=== PATIENT | male | born 1960 | race Caucasian/White ===

== ENCOUNTER 2017-12-10 13:42 | Emergency (ER) | payer MEDICAID ==
[~2017-12-10] VITALS: Ht 172.7 cm; Wt 77.0 kg
[2017-12-10] MEDS ORDERED: METF500T4 PO (13:52)
[2017-12-10] MEDS ORDERED: SODIUM CHLORIDE 0.9% 1,000 ML IV ONE ×2 (14:25→16:57)
[2017-12-10 14:43] LABS: BASOPHILS % 2.1 % (0.0-2.0); HEMATOCRIT. 40.8 % (42.0-52.0); HEMOGLOBIN. 13.7 g/dL (14.0-18.0); LYMPHOCYTES % 21.8 % (20.0-50.0); MEAN CORPUSCULAR HEMOGLOBIN 30.9 pg (28.0-32.0); MEAN CORPUSCULAR VOLUME 91.9 fL (80.0-94.0); MEAN PLATELET VOLUME 8.2 fl (7.4-10.4); MONOCYTES % 6.8 % (2.0-8.0); NEUTROPHILS % 63.3 % (40.0-76.0); PLATELET 269 x1000/uL (130-400); RED BLOOD CELL COUNT 4.44 mill/uL (4.7-6.1); RED CELL DISTRIBUTION WIDTH 13.9 % (11.6-14.6)
[2017-12-10 14:55] LABS: CLARITY URINE CLEAR (CLEAR); COLOR URINE YELLOW (YELLOW); KETONES URINE NEGATIVE (NEGATIVE); LEUKOCYTE ESTERASE URINE NEGATIVE (NEGATIVE); NITRITE URINE NEGATIVE (NEGATIVE); OCCULT BLOOD URINE NEGATIVE (NEGATIVE); PROTEIN URINE NEGATIVE (NEGATIVE); SPECIFIC GRAVITY URINE 1.038 (1.005-1.030); UROBILINOGEN URINE 0.2 E.U./dL (0.2-1.0)
[2017-12-10 14:56] LABS: BETA HYDROXYBUTYRATE 0.1 mMol/L (0.0-0.3); CHLORIDE 94 mEq/L (98-107)
[2017-12-10] MEDS ORDERED: INSULIN REGULAR (HUMULIN R) 300UNITS/3ML SUBCUT ONE (15:15)
[2017-12-10 17:12] VITALS: BP 128/76
== END 2017-12-10 18:22 | disposition home or self-care (01) ==
LOC: ER 15:13
DX: E11.65 Type 2 diabetes mellitus with hyperglycemia (principal); E78.00 Pure hypercholesterolemia, unspecified; F10.20 Alcohol dependence, uncomplicated
CPT/HCPCS: 36415; 80053; 81003; 82010; 82962; 85025; 96360; 96361; 96372; 99284; J1815; J7030; Z7610

== ENCOUNTER 2018-06-06 12:53 | Emergency (ER) | payer MEDICAID ==
[~2018-06-06] VITALS: Ht 170.2 cm; Wt 75.0 kg
[~2018-06-06 12:53] MED LIST: METF500T6 PO
[2018-06-06] MEDS ORDERED: IBUPROFEN 600MG TABLET PO ONE (16:00)
[2018-06-06 16:21] VITALS: BP 178/100
== END 2018-06-06 17:43 | disposition home or self-care (01) ==
LOC: ER 12:53
DX: S82.65XA Nondisplaced fracture of lateral malleolus of left fibula, initial encounter for closed fracture (principal); E11.9 Type 2 diabetes mellitus without complications; V17.0XXA Pedal cycle driver injured in collision with fixed or stationary object in nontraffic accident, initial encounter; Y93.89 Activity, other specified; Y92.89 Other specified places as the place of occurrence of the external cause
CPT/HCPCS: 29505; 73590; 73610; 73630; 99284

== ENCOUNTER 2019-05-25 12:02 | Emergency (ER) | payer MEDICAID, OTHER ==
[~2019-05-25] VITALS: Ht 172.7 cm; Wt 68.0 kg
[~2019-05-25 12:02] MED LIST changes: +METF-414 PO; -METF500T6 PO
[2019-05-25 14:29] LABS: BASOPHILS % 0.6 % (0.0-2.0); EOSINOPHILS % 1.5 % (0.0-5.0); HEMATOCRIT. 40.3 % (42.0-52.0); LYMPHOCYTES % 16.8 % (20.0-50.0); MEAN CORPUSCULAR HEMOGLOBIN 31.9 pg (28.0-32.0); MEAN CORPUSCULAR VOLUME 91.8 fL (80.0-94.0); MEAN PLATELET VOLUME 7.5 fl (7.4-10.4); MONOCYTES % 8.5 % (2.0-8.0); NEUTROPHILS % 72.6 % (40.0-76.0); PLATELET 310 x1000/uL (130-400); RED BLOOD CELL COUNT 4.39 mill/uL (4.7-6.1); RED CELL DISTRIBUTION WIDTH 12.7 % (11.6-14.6)
[2019-05-25 14:34] LABS: CHLORIDE 92 mEq/L (98-107)
[2019-05-25] MEDS ORDERED: INSULIN REGULAR (HUMULIN R) 300UNITS/3ML SUBCUT ONE (15:00)
[2019-05-25] MEDS ORDERED: SODIUM CHLORIDE 0.9% 1,000 ML IV ONE (15:15)
[2019-05-25 18:23] VITALS: BP 121/73
== END 2019-05-25 18:28 | disposition home or self-care (01) ==
LOC: ER 12:02
DX: R21 Rash and other nonspecific skin eruption (principal); E11.65 Type 2 diabetes mellitus with hyperglycemia; R03.0 Elevated blood-pressure reading, without diagnosis of hypertension; Z79.4 Long term (current) use of insulin
CPT/HCPCS: 36415; 80053; 82962; 85025; 96372; 99283; J1815; J7030

== ENCOUNTER 2021-02-23 12:45 | Inpatient (IN) | payer OTHER ==
[~2021-02-23] VITALS: Ht 167.6 cm; Wt 61.2 kg
[2021-02-23] MEDS: LACTATED RINGERS 1,000 ML IV SCH ×2 (14:05→16:20)
[2021-02-23 14:24] LABS: BASOPHILS % 1.2 % (0.0-2.0); EOSINOPHILS % 2.4 % (0.0-5.0); HEMATOCRIT. 41.4 % (42.0-52.0); HEMOGLOBIN. 13.8 g/dL (14.0-18.0); LYMPHOCYTES % 20.3 % (20.0-50.0); MEAN CORPUSCULAR VOLUME 92.7 fL (80.0-94.0); MEAN PLATELET VOLUME 7.5 fl (7.4-10.4); MONOCYTES % 7.6 % (2.0-8.0); NEUTROPHILS % 68.5 % (40.0-76.0); PLATELET 331 x1000/uL (130-400); RED BLOOD CELL COUNT 4.46 mill/uL (4.7-6.1); RED CELL DISTRIBUTION WIDTH 13.1 % (11.6-14.6)
[2021-02-23 14:31] LABS: CHLORIDE 93 mEq/L (98-107)
[2021-02-23 14:35] LABS: INR 1.1; PROTHROMBIN TIME 11.6 sec (9.6-11.0)
[2021-02-23] MEDS ORDERED: LACTATED RINGERS 1,000 ML IV SCH (15:15)
[2021-02-23] MEDS ORDERED: KCL 20MEQ/100ML PREMIX 100 ML IV NR (15:15)
[2021-02-23] MEDS ORDERED: IOHEXOL-300 100 ML BOTTLE ONE (19:33)
[2021-02-24] MEDS ORDERED: LACTULOSE 20G/30ML UDC PO SCH (08:30)
[2021-02-24] MEDS ORDERED: DEXTROSE 50% WATER 50ML SYRINGE IV PRN (08:30)
[2021-02-24] MEDS ORDERED: BISACODYL 10MG SUPP PR PRN (08:30)
[2021-02-24] MEDS: BLOOD SUGAR DIAGNOSTIC STRIP TEST SCH ×3 (09:00→21:41)
[2021-02-24] MEDS ORDERED: INSULIN GLARGINE UD 100 UNITS/ML SYR SUBCUT SCH (10:00)
[2021-02-24 12:57] LABS: HEPATITIS B SURFACE ANTIGEN NEGATIVE
[2021-02-24] MEDS ORDERED: INSULIN LISPRO 100 UNITS/ML SUBCUT SCH (13:20)
[2021-02-24 13:27] LABS: HEPATITIS A AB IGM NEGATIVE (NEGATIVE)
[2021-02-24] MEDS: METOCLOPRAMIDE HCL 10MG/2ML VIAL IV SCH ×2 (14:32→18:03)
[2021-02-24] MEDS: INSULIN LISPRO 100 UNITS/ML SUBCUT SCH ×3 (14:33→22:11)
[2021-02-24] MEDS: TAMSULOSIN HCL 0.4MG SR CAPSULE PO SCH (14:43)
[2021-02-24 16:55] VITALS: BP 137/90
[2021-02-24] MEDS ORDERED: POTASSIUM CHLORIDE 20MEQ TABLET SR PO NR (17:15)
[2021-02-24] MEDS ORDERED: IMOD MT (17:44)
[2021-02-24] MEDS ORDERED: LISI20TA31 MT (17:44)
[2021-02-24] MEDS ORDERED: FOLI-43 MT (17:44)
[2021-02-24] MEDS ORDERED: METF-416 MT (17:44)
[2021-02-24] MEDS ORDERED: LIP40 MT (17:44)
[2021-02-24] MEDS: AMLODIPINE 10MG TABLET PO SCH (18:03)
[2021-02-24 18:58] VITALS: BP 137/90
[2021-02-24] MEDS ORDERED: PNEUMOCOCCAL 23-VAL P-SAC VAC 0.5 ML IM ONE (19:15)
[2021-02-24 20:00] VITALS: BP 98/61
[2021-02-24] MEDS: INSULIN GLARGINE UD 100 UNITS/ML SYR SUBCUT SCH (22:11)
[2021-02-25] VITALS: BP_SYST 146; BP_SYST 95; BP_DIAS 51; BP_DIAS 82
[2021-02-25] MEDS: METOCLOPRAMIDE HCL 10MG/2ML VIAL IV SCH ×3 (00:50→12:00)
[2021-02-25 04:00] VITALS: BP 146/82
[2021-02-25] MEDS: BLOOD SUGAR DIAGNOSTIC STRIP TEST SCH ×3 (06:09→16:20)
[2021-02-25] MEDS: INSULIN LISPRO 100 UNITS/ML SUBCUT SCH ×3 (06:20→16:20)
[2021-02-25 06:46] LABS: BASOPHILS % 0.7 % (0.0-2.0); EOSINOPHILS % 0.8 % (0.0-5.0); HEMATOCRIT. 37.4 % (42.0-52.0); HEMOGLOBIN. 12.9 g/dL (14.0-18.0); LYMPHOCYTES % 17.3 % (20.0-50.0); MEAN CORPUSCULAR HEMOGLOBIN 31.6 pg (28.0-32.0); MEAN CORPUSCULAR VOLUME 91.7 fL (80.0-94.0); MEAN PLATELET VOLUME 7.4 fl (7.4-10.4); MONOCYTES % 6.8 % (2.0-8.0); NEUTROPHILS % 74.4 % (40.0-76.0); PLATELET 323 x1000/uL (130-400); RED BLOOD CELL COUNT 4.08 mill/uL (4.7-6.1); RED CELL DISTRIBUTION WIDTH 13.2 % (11.6-14.6)
[2021-02-25 06:57] LABS: CHLORIDE 98 mEq/L (98-107)
[2021-02-25 08:00] VITALS: BP 114/73
[2021-02-25] MEDS ORDERED: THIAMINE HCL 100MG TABLET PO SCH (09:00)
[2021-02-25] MEDS ORDERED: MULTIVITAMINS,THER W-MINERALS TABLET PO SCH (09:00)
[2021-02-25] MEDS ORDERED: FOLIC ACID 1MG TABLET PO SCH (09:00)
[2021-02-25] MEDS ORDERED: POTASSIUM CHLORIDE INJ 40 MEQ in DEXT 5% WATER 250 ML IV NR (09:30)
[2021-02-25] MEDS: TAMSULOSIN HCL 0.4MG SR CAPSULE PO SCH (09:50)
[2021-02-25] MEDS: AMLODIPINE 10MG TABLET PO SCH (09:50)
[2021-02-25] MEDS: INSULIN GLARGINE UD 100 UNITS/ML SYR SUBCUT SCH (09:55)
[2021-02-25 12:00] VITALS: BP 149/87
[2021-02-25] MEDS ORDERED: POTASSIUM CHLORIDE 20MEQ TABLET SR PO SCH (12:00)
[2021-02-25] MEDS ORDERED: LANTUSUD SUBCUT (12:44)
[2021-02-25] MEDS ORDERED: THIA100T72 PO (12:44)
[2021-02-25] MEDS ORDERED: TAMS-11 PO (12:44)
[2021-02-25] MEDS ORDERED: AMLO10TA80 PO (12:44)
[2021-02-25] MEDS ORDERED: DOCU-138 MT (12:45)
[2021-02-25 14:53] VITALS: BP 149/87
[2021-02-25 16:00] VITALS: BP 124/75
== END 2021-02-25 18:15 | disposition home or self-care (01) | DRG 48 ==
LOC: ER 12:45 → CANBEDREQ 02-24 01:18 → 5WST 02-24 06:11 → ENRESERV 02-24 15:33 → CANBEDREQ 02-24 18:33
PROVIDERS: ADMIT Internal Medicine; ATTEND Internal Medicine
DX: E11.43 Type 2 diabetes mellitus with diabetic autonomic (poly)neuropathy (principal); E87.8 Other disorders of electrolyte and fluid balance, not elsewhere classified; E11.65 Type 2 diabetes mellitus with hyperglycemia; E87.1 Hypo-osmolality and hyponatremia; N40.0 Benign prostatic hyperplasia without lower urinary tract symptoms; K56.41 Fecal impaction; I10 Essential (primary) hypertension; E78.00 Pure hypercholesterolemia, unspecified; Z20.822 Contact with and (suspected) exposure to COVID-19; K31.84 Gastroparesis; E78.5 Hyperlipidemia, unspecified; N32.89 Other specified disorders of bladder; D72.819 Decreased white blood cell count, unspecified; E87.6 Hypokalemia; F10.10 Alcohol abuse, uncomplicated; Y90.9 Presence of alcohol in blood, level not specified
CPT/HCPCS: 36415; 74177; 76705; 80048; 80053; 82962; 83036; 84132; 84484; 85025; 86705; 86709; 86803; 87340; 87426; 90732; 93005; 99285; J1815; J2765; J3480; J7040; J7060; Q9967

== ENCOUNTER 2021-05-29 15:04 | Inpatient (IN) | payer OTHER ==
[~2021-05-29] VITALS: Ht 165.1 cm; Wt 70.8 kg
[~2021-05-29 15:04] MED LIST changes: +AMLO10TA80 PO; +DOCU-138 MT; +FOLI-43 MT; +IMOD MT; +LANTUSUD SUBCUT; +LIP40 MT; -METF-414 PO; +METF-416 MT; +TAMS-11 PO; +THIA100T72 PO
[2021-05-29 16:58] LABS: BASOPHILS % 0.8 % (0.0-2.0); EOSINOPHILS % 1.3 % (0.0-5.0); HEMATOCRIT. 35.2 % (42.0-52.0); HEMOGLOBIN. 12.1 g/dL (14.0-18.0); MEAN CORPUSCULAR HEMOGLOBIN 30.6 pg (28.0-32.0); MEAN CORPUSCULAR VOLUME 89.1 fL (80.0-94.0); MONOCYTES % 5.5 % (2.0-8.0); NEUTROPHILS % 72.4 % (40.0-76.0); PLATELET 349 x1000/uL (130-400); RED BLOOD CELL COUNT 3.96 mill/uL (4.7-6.1); RED CELL DISTRIBUTION WIDTH 12.9 % (11.6-14.6)
[2021-05-29 17:00] LABS: CHLORIDE 95 mEq/L (98-107)
[2021-05-29 17:26] LABS: CLARITY URINE CLEAR (CLEAR); COLOR URINE YELLOW (YELLOW); KETONES URINE NEGATIVE (NEGATIVE); LEUKOCYTE ESTERASE URINE NEGATIVE (NEGATIVE); NITRITE URINE NEGATIVE (NEGATIVE); OCCULT BLOOD URINE NEGATIVE (NEGATIVE); PH URINE 5.5 (4.5-8.0); PROTEIN URINE NEGATIVE (NEGATIVE); SPECIFIC GRAVITY URINE 1.042 (1.005-1.030); UROBILINOGEN URINE 0.2 E.U./dL (0.2-1.0)
[2021-05-29] MEDS ORDERED: POTASSIUM CHLORIDE 20MEQ TABLET SR PO NR (18:00)
[2021-05-29] MEDS ORDERED: SODIUM CHLORIDE 0.9% 1,000 ML IV ONE ×2 (18:00)
[2021-05-29] MEDS ORDERED: KCL 20MEQ/100ML PREMIX 100 ML IV NR (18:00)
[2021-05-29] MEDS ORDERED: TETANUS, DIPHTHERIA, PERTUSSIS VAC/PF 0.5ML (>7YR OLD) IM ONE (19:30)
[2021-05-29 23:05] VITALS: BP 149/82
[2021-05-30] VITALS (12 sets, daily range): BP systolic 100–157; BP diastolic 65–96
[2021-05-30] MEDS ORDERED: DEXTROSE 50% WATER 50ML SYRINGE IV PRN (00:15)
[2021-05-30] MEDS: BLOOD SUGAR DIAGNOSTIC STRIP TEST SCH ×4 (06:24→21:17)
[2021-05-30 07:43] LABS: CHLORIDE 101 mEq/L (98-107)
[2021-05-30 07:44] LABS: BASOPHILS % 0.9 % (0.0-2.0); EOSINOPHILS % 1.5 % (0.0-5.0); HEMATOCRIT. 37.5 % (42.0-52.0); HEMOGLOBIN. 12.7 g/dL (14.0-18.0); LYMPHOCYTES % 22.1 % (20.0-50.0); MEAN CORPUSCULAR VOLUME 88.8 fL (80.0-94.0); MEAN PLATELET VOLUME 7.9 fl (7.4-10.4); MONOCYTES % 7.4 % (2.0-8.0); NEUTROPHILS % 68.1 % (40.0-76.0); PLATELET 369 x1000/uL (130-400); RED BLOOD CELL COUNT 4.22 mill/uL (4.7-6.1); RED CELL DISTRIBUTION WIDTH 13.4 % (11.6-14.6)
[2021-05-30] MEDS: AMLODIPINE 10MG TABLET PO SCH (08:21)
[2021-05-30] MEDS: INSULIN LISPRO 100 UNITS/ML SUBCUT SCH ×6 (08:22→21:00)
[2021-05-30] MEDS: ENOXAPARIN 40MG/0.4ML SYR SUBCUT SCH (08:22)
[2021-05-30] MEDS ORDERED: POTASSIUM CHLORIDE 20MEQ TABLET SR PO NR (08:30)
[2021-05-30] MEDS ORDERED: INSULIN GLARGINE UD 100 UNITS/ML SYR SUBCUT SCH (10:00)
[2021-05-30] MEDS: INSULIN GLARGINE UD 100 UNITS/ML SYR SUBCUT SCH ×2 (11:39→22:47)
[2021-05-31] VITALS (12 sets, daily range): BP systolic 100–157; BP diastolic 54–99
[2021-05-31] MEDS: BLOOD SUGAR DIAGNOSTIC STRIP TEST SCH ×4 (06:19→21:00)
[2021-05-31] MEDS: INSULIN LISPRO 100 UNITS/ML SUBCUT SCH ×5 (06:20→21:00)
[2021-05-31 06:21] LABS: CHLORIDE 101 mEq/L (98-107)
[2021-05-31 06:41] LABS: BASOPHILS % 0.8 % (0.0-2.0); EOSINOPHILS % 0.5 % (0.0-5.0); LYMPHOCYTES % 18.4 % (20.0-50.0); MEAN CORPUSCULAR HEMOGLOBIN 30.2 pg (28.0-32.0); MEAN PLATELET VOLUME 7.9 fl (7.4-10.4); MONOCYTES % 7.8 % (2.0-8.0); NEUTROPHILS % 72.5 % (40.0-76.0); PLATELET 388 x1000/uL (130-400); RED BLOOD CELL COUNT 4.31 mill/uL (4.7-6.1); RED CELL DISTRIBUTION WIDTH 13.3 % (11.6-14.6)
[2021-05-31] MEDS: ENOXAPARIN 40MG/0.4ML SYR SUBCUT SCH (09:21)
[2021-05-31] MEDS: AMLODIPINE 10MG TABLET PO SCH (09:22)
[2021-05-31] MEDS ORDERED: POTASSIUM CHLORIDE 20MEQ TABLET SR PO SCH (09:30)
[2021-05-31] MEDS ORDERED: ACETAMINOPHEN 325MG TABLET PO PRN (09:45)
[2021-05-31] MEDS ORDERED: LANTUSUD SUBCUT (10:01)
[2021-05-31] MEDS ORDERED: AMLO10TA80 PO (10:01)
[2021-05-31] MEDS ORDERED: THIA100T72 PO (10:01)
[2021-05-31] MEDS ORDERED: TRAMADOL 50MG TABLET PO PRN (12:15)
[2021-05-31] MEDS: INSULIN GLARGINE UD 100 UNITS/ML SYR SUBCUT SCH ×2 (12:36→21:11)
[2021-06-01] VITALS (12 sets, daily range): BP systolic 98–159; BP diastolic 55–92
[2021-06-01] MEDS: BLOOD SUGAR DIAGNOSTIC STRIP TEST SCH ×4 (06:31→20:50)
[2021-06-01] MEDS: INSULIN LISPRO 100 UNITS/ML SUBCUT SCH ×4 (06:48→20:50)
[2021-06-01 06:53] LABS: CHLORIDE 100 mEq/L (98-107)
[2021-06-01 06:59] LABS: PHOSPHORUS 3.2 mg/dL (2.5-4.9)
[2021-06-01] MEDS: ENOXAPARIN 40MG/0.4ML SYR SUBCUT SCH (09:18)
[2021-06-01] MEDS: AMLODIPINE 10MG TABLET PO SCH ×2 (09:20→09:21)
[2021-06-01] MEDS ORDERED: POTASSIUM CHLORIDE 20MEQ TABLET SR PO SCH (10:00)
[2021-06-01] MEDS: INSULIN GLARGINE UD 100 UNITS/ML SYR SUBCUT SCH ×2 (13:25→20:50)
[2021-06-01] MEDS ORDERED: MAGNESIUM 2 G PREMIX 50 ML IV SCH (15:00)
[2021-06-02] VITALS (8 sets, daily range): BP systolic 98–166; BP diastolic 54–96
[2021-06-02] MEDS: INSULIN LISPRO 100 UNITS/ML SUBCUT SCH (06:25)
[2021-06-02] MEDS: BLOOD SUGAR DIAGNOSTIC STRIP TEST SCH ×2 (06:25→11:50)
[2021-06-02] MEDS: ENOXAPARIN 40MG/0.4ML SYR SUBCUT SCH (09:26)
[2021-06-02] MEDS: INSULIN GLARGINE UD 100 UNITS/ML SYR SUBCUT SCH (09:26)
== END 2021-06-02 13:20 | disposition home or self-care (01) | DRG 420 ==
LOC: ER 15:04 → 3WST 19:27 → EDBEDREQSVC 19:40 → EDBEDREQ 19:40 → EDBEDREQTM 19:40 → ENRESERV 21:48
PROVIDERS: ADMIT Internal Medicine; ATTEND Internal Medicine
PROC: 0JBR0ZZ Excision of Left Foot Subcutaneous Tissue and Fascia, Open Approach (ICD-10-PCS; principal; 2021-05-30)
DX: E11.621 Type 2 diabetes mellitus with foot ulcer (principal); E87.8 Other disorders of electrolyte and fluid balance, not elsewhere classified; E44.0 Moderate protein-calorie malnutrition; E11.65 Type 2 diabetes mellitus with hyperglycemia; D64.9 Anemia, unspecified; S40.212A Abrasion of left shoulder, initial encounter; S90.412A Abrasion, left great toe, initial encounter; E78.00 Pure hypercholesterolemia, unspecified; E87.6 Hypokalemia; F10.129 Alcohol abuse with intoxication, unspecified; F17.210 Nicotine dependence, cigarettes, uncomplicated; S00.01XA Abrasion of scalp, initial encounter; W01.0XXA Fall on same level from slipping, tripping and stumbling without subsequent striking against object, initial encounter; I10 Essential (primary) hypertension; L60.2 Onychogryphosis; Y90.9 Presence of alcohol in blood, level not specified; Z79.4 Long term (current) use of insulin; Z79.899 Other long term (current) drug therapy; Z82.49 Family history of ischemic heart disease and other diseases of the circulatory system; Z68.26 Body mass index [BMI] 26.0-26.9, adult; Z71.41 Alcohol abuse counseling and surveillance of alcoholic; Z71.6 Tobacco abuse counseling; Y93.89 Activity, other specified; Y92.89 Other specified places as the place of occurrence of the external cause; Y99.8 Other external cause status
CPT/HCPCS: 36415; 71045; 80048; 80053; 80320; 81003; 82040; 82962; 83036; 83605; 83735; 84100; 84134; 84145; 84484; 85025; 90715; 93005; 97161; 99291; A6261; J1650; J1815; J3475; J3480; G0480